=== PATIENT | female | born 1980 | race Caucasian/White ===

== ENCOUNTER 2018-09-24 08:34 | Emergency (ER) | payer MEDICAID ==
[~2018-09-24] VITALS: Ht 167.6 cm; Wt 96.1 kg
[~2018-09-24 08:34] MED LIST: ACET500T98 PO; DENIES MEDS; IRON1TAB75 PO; PNV1TABL43 PO
[2018-09-24 08:43] VITALS: Ht 167.6 cm; Wt 96.1 kg
[2018-09-24] MEDS ORDERED: SULF1TAB31 PO (09:09)
[2018-09-24] MEDS ORDERED: CEPH-443 PO (09:09)
--- NOTE | 2018-09-24 10:31 | ERD ---
ER Documentation Chief Complaint Chief Complaint Complains of an abscess to leg after an injection HPI Patient is a 38-year-old female with no medical problems who presents with redness to the left leg. She had an injection of penicillin given to her left leg 2 weeks ago and afterwards started with redness around the area. She has had fevers as well which she reports. She has pain at the area and is warm to touch. Upon review of old medical records this is the patient's fourth visit to the ER since 2010. She does not currently have a primary doctor. ROS All systems reviewed and are negative except as per history of present illness. Medications Home Meds Active Scripts Cephalexin* (Keflex*) 500 Mg Capsule, 500 MG PO QID for 7 Days, CAP Prov:YOAN MCPHERSON MD 09/24/18 Sulfamethoxazole/Trimethoprim* (Bactrim Ds* Tablet) 1 Each Tablet, 1 TAB PO BID, #14 TAB Prov:YOAN MCPHERSON MD 09/24/18 Reported Medications Iron &Iron Asp Gly/Fa/Mv,Min38 (IRON TABLET) 1 Each Tablet, 1 EACH PO DAILY 02/02/13 Vit/Fe Fumarate/Fa* ( Vitamin Tablet*) 1 Tab Tablet, 1 TAB PO DAILY 02/02/13 Acetaminophen (Tylenol) 500 Mg Tab, PO Q4 06/13/12 [Denies Meds] No Conflict Check 08/11/10 Allergies Allergies: Coded Allergies: No Known Drug Allergy (Verified Allergy, Mild, 06/13/12) PMhx/Soc Medical and Surgical Hx: pt denies Medical Hx History of Surgery: No Anesthesia Reaction: No Hx Neurological Disorder: No Hx Respiratory Disorders: No Hx Cardiac Disorders: No Hx Psychiatric Problems: No Hx Miscellaneous Medical Probl: No Hx Alcohol Use: No Hx Substance Use: No Hx Tobacco Use: No Smoking Status: Never smoker FmHx Family History: No diabetes Physical Exam Vitals Vital Signs Date Temp Pulse Resp B/P (MAP) Pulse Ox O2 O2 Flow FiO2 Time Delivery Rate 09/24/18 97.0 86 20 120/67 98 08:43 (84) Physical Exam Const: No acute distress Head: Atraumatic Eyes: Normal Conjunctiva ENT: Normal External Ears, Nose and Mouth. Neck: Full range of motion. No meningismus. Resp: Clear to auscultation bilaterally Cardio: Regular rate and rhythm, no murmurs Abd: Soft, non tender, non distended. Normal bowel sounds Skin: 4 x 4 centimeter circular area of redness to the left lateral thigh without fluctuance or signs of abscess Back: No midline or flank tenderness Ext: No cyanosis, or edema Neur: Awake and alert Psych: Normal Mood and Affect Procedures/MDM Patient is a 38-year-old female who presents with acute cellulitis of the left thigh. This is likely related to recent injection 2 weeks ago. There is no sign of abscess at this time. The patient will be given Keflex and Bactrim. She is otherwise well-appearing and I doubt sepsis. She will be to follow-up with a primary doctor within 48 hours for wound check. She can return sooner for any worsening symptoms. She was given a list of local clinics as she does not currently have a primary doctor. Departure Diagnosis: Primary Impression: Cellulitis Site of cellulitis: extremity Site of cellulitis of extremity: lower extremity Laterality: left Qualified Codes: L03.116 - Cellulitis of left lower limb Condition: Fair Patient Instructions: Cellulitis Referrals[facility] Usted se crawford hecho un examen mdico de control que le indica que no est en carla condicin que requiera tratamiento urgente en el Departamento de Emergencia. Un estudio ms profundo y el tratamiento de nesbitt condicin pueden esperar sin ningn riesgo hasta que usted sea atendida/o en el consultorio de nesbitt mdico o carla clnica. Es responsabilidad suya arreglar carla inga para el seguimiento del teagan. MANEJO DE CONDICIONES NO URGENTES EN EL FUTURO 1) Si usted tiene un mdico de atencin primaria: Usted debera llamar a nesbitt mdico de atencin primaria antes de venir al departamento de emergencia. Despus de las horas de consultorio, nesbitt doctor o nesbitt asociado/a est disponible por telfono. El mdico o enfermero de emmanuel en el servicio telefnico puede asesorarle por nataliya medio para atender el problema, o teagan contrario se puede programar carla inga. 2) Si usted no tiene un mdico de atencin primaria: Llame al mdico o clnica de referencia que aparece abajo marietta las horas de consultorio para hacer carla inga para que le vean. CLINICAS: [facility] [phone] [facility] [phone] [facility] [phone] [address] [place] [phone] [facility] [place] [phone] [facility] [phone] [address] Additional Instructions: Llame al doctor nombrado abajo (Referral Sources) MAANA y juan carla INGA PARA DENTRO DE CARLA SEMANA. Dgale a la secretaria que nosotros le instruimos hacer esta inga.Avise o llame si nesbitt condicin se empeora antes de la inga. YOAN MCPHERSON MD Sep 24, 2018 10:31
== END 2018-09-24 09:23 | disposition home or self-care (01) ==
LOC: E/R 08:34
DX: L03.116 Cellulitis of left lower limb (principal)
CPT/HCPCS: 99283

== ENCOUNTER 2018-09-27 16:01 | Emergency (ER) | payer MEDICAID ==
[~2018-09-27] VITALS: Ht 167.6 cm; Wt 95.3 kg
[~2018-09-27 16:01] MED LIST changes: +CEPH-443 PO; +SULF1TAB31 PO
[2018-09-27 16:07] VITALS: Ht 167.6 cm; Wt 95.3 kg
[2018-09-28] MEDS ORDERED: LIDOCAINE 2% (MDV) 20 ML INJ INJ ONE (00:30)
[2018-09-28] MEDS ORDERED: HYDROCODONE/APAP (5/325) TAB PO ONE (00:30)
[2018-09-28] MEDS ORDERED: IBUP-1542 PO (01:18)
--- NOTE | 2018-10-04 20:03 | ERD ---
ER Documentation Chief Complaint Chief Complaint Complains of an abscess to the thigh S/P injection stick HPI 38-year-old female patient with no significant past medical history presents to ED for abscess to her by that started after receiving a penicillin injection. Patient reports that her last mensuration was on September 05, 2018. States that she tried to take antibiotics however it did not improve without the incision and drainage. Denies any fever, chills, loss sensation loss of range of motion. ROS All systems reviewed and are negative except as per history of present illness. Medications Home Meds Active Scripts Sulfamethoxazole/Trimethoprim* (Bactrim Ds* Tablet) 1 Each Tablet, 1 TAB PO BID for 5 Days, #10 TAB Prov:ANTIONE DOMINGUEZ NP 09/30/18 Cephalexin* (Keflex*) 500 Mg Capsule, 500 MG PO QID for 5 Days, CAP Prov:ANTIONE DOMINGUEZ RIPENING ROOM ATTENDANT 09/30/18 Cephalexin* (Keflex*) 500 Mg Capsule, 500 MG PO QID for 5 Days, #20 CAP Prov:ANTIONE DOMINGUEZ NP 09/30/18 Sulfamethoxazole/Trimethoprim* (Bactrim Ds* Tablet) 1 Each Tablet, 1 TAB PO BID for 5 Days, #10 TAB Prov:DOMINGUEZANTIONE NP 09/30/18 Ibuprofen* (Motrin*) 600 Mg Tab, 600 MG PO Q6, #30 TAB Prov:DONAL LOPEZ PA-C 09/28/18 Reported Medications Iron &Iron Asp Gly/Fa/Mv,Min38 (IRON TABLET) 1 Each Tablet, 1 EACH PO DAILY 02/02/13 Vit/Fe Fumarate/Fa* ( Vitamin Tablet*) 1 Tab Tablet, 1 TAB PO DAILY 02/02/13 Acetaminophen (Tylenol) 500 Mg Tab, PO Q4 06/13/12 [Denies Meds] No Conflict Check 08/11/10 Allergies Allergies: Coded Allergies: No Known Drug Allergy (Verified Allergy, Mild, 06/13/12) PMhx/Soc History of Surgery: No Anesthesia Reaction: No Hx Neurological Disorder: No Hx Respiratory Disorders: No Hx Cardiac Disorders: No Hx Psychiatric Problems: No Hx Miscellaneous Medical Probl: No Hx Alcohol Use: No Hx Substance Use: No Hx Tobacco Use: No Physical Exam Vitals Temp 98.4 Pulse 96 Systolic blood pressure 130 Diastolic blood pressure 77 Respiratory rate 20 O2 sat 118 Pain intensity 5 Physical Exam Const: [id number], well-nourished. In no acute distress. Head: Atraumatic, normocephalic Eyes: Normal Conjunctiva without injection ENT: Normal external ear, nose and mouth. Neck: Full range of motion. No meningismus. Resp: Clear to auscultation bilaterally. No wheezing, rhonchi, rales, or crackles. No accessory muscle use. No retractions. Cardio: Regular rate and rhythm, no murmurs Skin: No petechiae or rashes Back: No midline tenderness. No CVA tenderness. Ext: No cyanosis, or edema. Cap refill less than 2 seconds. Distal pulses intact bilaterally. 3 cm fluctuance noted of the left upper lateral thigh with slight edema noted. Minimal bleeding. Slight surrounding erythema. Neur: Awake and alert. Normal gait and coordination. Muscle strength 5/5. Sensation intact bilaterally. Psych: Normal Mood and Affect Results 24 hrs Current Medications Medications Dose Sig/Nia Start Time Status Last (Trade) Ordered Route PRN Stop Time Admin Dose Reason Admin Lidocaine 20 ml ONCE ONCE 09/28/18 DC 09/28/18 (Xylocaine INJ 00:30 09/28/18 00:20 2% (Mdv) 20 00:31 ml) 1 tab ONCE ONCE 09/28/18 DC 09/28/18 Acetaminophen PO 00:30 09/28/18 00:20 / 00:31 Hydrocodone Bitart ([place] (5/325)) Procedures/MDM 38-year-old female patient with no significant past medical history presents the ED complaining of an abscess to her left thigh. Patient is afebrile and nontoxic-appearing. Patient gave consent to perform incision and drainage. 11 blade scalpel used to make a small incision. Abscess Incision and Drainage with irrigation by me: Location: Left Thigh Anesthesia: [Local 1% Lidocaine] Technique: [Irrigated. Disrupted loculations w/ instrumentation] Packin cm Complications: [Neurovascularly intact post procedure] Copious purulent discharge drained from the abscess. Instructed patient to continue to take Keflex and Bactrim as prescribed to patient. Instructed patient to return to the ED sooner for any worsening sympto ms. Follow up with primary care physician or return to the ED in 2 days for a wound check. Patient's questions were answered. Patient understood and agreed with discharge plan. Departure Diagnosis: Primary Impression: Abscess Condition: Stable Patient Instructions: Abscess, Incision And Drainage Referrals: [facility] () Usted se crawford hecho un examen mdico de control que le indica que no est en carla condicin que requiera tratamiento urgente en el Departamento de Emergencia. Un estudio ms profundo y el tratamiento de zurita condicin pueden esperar sin ningn riesgo hasta que usted sea atendida/o en el consultorio de zurita mdico o carla clnica. Es responsabilidad suya arreglar carla inga para el seguimiento del teagan. MANEJO DE CONDICIONES NO URGENTES EN EL FUTURO 1) Si usted tiene un mdico de atencin primaria: Usted debera llamar a zurita mdico de atencin primaria antes de venir al departamento de emergencia. Despus de las horas de consultorio, zurita doctor o zurita asociado/a est disponible por telfono. El mdico o enfermero de emmanuel en el servicio telefnico puede asesorarle por nataliya medio para atender el problema, o teagan contrario se puede programar carla inga. 2) Si usted no tiene un mdico de atencin primaria: Llame al mdico o clnica de referencia que aparece abajo [place] las horas de consultorio para hacer carla inga para que le vean. CLINICAS: [facility] [phone] [address] [facility] [phone] [facility] [phone] [address] [facility]. [facility] [phone] [facility]. [facility] [phone] [address] [facility]. [phone] [address] [facility] () Usted se crawford hecho un examen mdico de control que le indica que no est en carla condicin que requiera tratamiento urgente en el Departamento de Emergencia. Un estudio ms profundo y el tratamiento de zurita condicin pueden esperar sin nin riesgo hasta que usted sea atendida/o en el consultorio de zurita mdico o carla clnica. Es responsabilidad suya arreglar carla inga para el seguimiento del teagan. MANEJO DE CONDICIONES NO URGENTES EN EL FUTURO 1) Si usted tiene un mdico de atencin primaria: Usted debera llamar a zurita mdico de atencin primaria antes de venir al departamento de emergencia. Despus de las horas de consultorio, zurita doctor o zurita asociado/a est disponible por telfono. El mdico o enfermero de emmanuel en el servicio telefnico puede asesorarle por nataliya medio para atender el problema, o teagan contrario se puede programar carla inga. 2) Si usted no tiene un mdico de atencin primaria: Llame al mdico o condado institucions de referencia que aparece abajo [place] las horas de consultorio para hacer carla inga para que le vean. SI USTED NO PUEDE PAGAR PARA JERO UN MEDICO puede ir a: [facility] [address] [place] [address] [facility] [address] [place] [address] [facility] [address] [place] [address] [address] [facility] [address] [place], [place] [phone] Additional Instructions: Por favor complete todos los antibiticos prescritos a usted Llame al doctor MAANA y juan carla INGA PARA DENTRO DE 2-3 DIOP.Dgale a la secretaria que nosotros le instruimos hacer esta inga.Avise o llame si zurita condicin se empeora antes de la inga. Regresa aqui si peor o no mejor. WOUND CHECK:CONSULTE A ZURITA MDICO EN 2 perez para jero ZURITA HERIDA y la eliminacin del embalaje. DONAL LOPEZ PA-C Oct 04, 2018 20:03
== END 2018-09-28 01:37 | disposition home or self-care (01) ==
LOC: FTE 16:01
DX: L02.416 Cutaneous abscess of left lower limb (principal)
CPT/HCPCS: 10060; Z7502; Z7610

== ENCOUNTER 2018-09-30 09:50 | Emergency (ER) | payer MEDICAID ==
[~2018-09-30] VITALS: Wt 93.9 kg
[~2018-09-30 09:50] MED LIST changes: +IBUP-1542 PO
[2018-09-30 09:52] VITALS: BP 119/68; PULSE 68; RESP 17
[2018-09-30] MEDS ORDERED: CEPH-443 PO (11:56)
[2018-09-30] MEDS ORDERED: SULF1TAB31 PO (11:56)
[2018-09-30] MEDS ORDERED: HYDROCODONE/APAP (7.5/325) TAB PO ONE (12:00)
--- NOTE | 2018-09-30 12:03 | ERD ---
ER Documentation Chief Complaint Chief Complaint PT HERE FOR WOUND CHECK S/P ABCESS I&D LEFT OUTER UPPER THIGH HPI 38-year-old female patient presents for recheck of left upper thigh abscess which had I&D 3 days ago. Dressing stained with BRB, gauze packing intact. Patient states she was on last day of her prescribed antibiotic. She has been taking Tylenol for pain, denies fevers, denies any purulent drainage. ROS All systems reviewed and are negative except as per history of present illness. Medications Home Meds Active Scripts Sulfamethoxazole/Trimethoprim* (Bactrim Ds* Tablet) 1 Each Tablet, 1 TAB PO BID for 5 Days, #10 TAB Prov:DOMINGUEZANTIONE HEALTHCARE FACILITY ADMINISTRATOR 09/30/18 Cephalexin* (Keflex*) 500 Mg Capsule, 500 MG PO QID for 5 Days, CAP Prov:DOMINGUEZANTIONE HEALTHCARE FACILITY ADMINISTRATOR 09/30/18 Cephalexin* (Keflex*) 500 Mg Capsule, 500 MG PO QID for 5 Days, #20 CAP Prov:ANGELICAANTIONE HEALTHCARE FACILITY ADMINISTRATOR 09/30/18 Sulfamethoxazole/Trimethoprim* (Bactrim Ds* Tablet) 1 Each Tablet, 1 TAB PO BID for 5 Days, #10 TAB Prov:ANGELICAANTIONE HEALTHCARE FACILITY ADMINISTRATOR 09/30/18 Ibuprofen* (Motrin*) 600 Mg Tab, 600 MG PO Q6, #30 TAB Prov:DONAL LOPEZ PA-C 09/28/18 Reported Medications Iron &Iron Asp Gly/Fa/Mv,Min38 (IRON TABLET) 1 Each Tablet, 1 EACH PO DAILY 02/02/13 Vit/Fe Fumarate/Fa* ( Vitamin Tablet*) 1 Tab Tablet, 1 TAB PO D AILY 02/02/13 Acetaminophen (Tylenol) 500 Mg Tab, PO Q4 06/13/12 [Denies Meds] No Conflict Check 08/11/10 Allergies Allergies: Coded Allergies: No Known Drug Allergy (Verified Allergy, Mild, 06/13/12) PMhx/Soc History of Surgery: No Anesthesia Reaction: No Hx Neurological Disorder: No Hx Respiratory Disorders: No Hx Cardiac Disorders: No Hx Psychiatric Problems: No Hx Miscellaneous Medical Probl: No Hx Alcohol Use: No Hx Substance Use: No Hx Tobacco Use: No FmHx Family History: No diabetes, No coronary disease, No other Physical Exam Vitals Vital Signs Date Temp Pulse Resp B/P (MAP) Pulse Ox O2 O2 Flow FiO2 Time Delivery Rate 09/30/18 98.4 68 17 119/68 98 09:52 (85) Physical Exam Const: No acute distress Head: Atraumatic Eyes: Normal Conjunctiva ENT: Normal External Ears, Nose and Mouth. Neck: Full range of motion. No meningismus. Resp: Clear to auscultation bilaterally Cardio: Regular rate and rhythm, no murmurs Abd: Soft, non tender, non distended. Normal bowel sounds Skin: No petechiae or rashes. -Left thigh wound: periwound skin red and indurated, wound edges moist, sanguineous drainage, mild purulent drainage. Back: No midline or flank tenderness Ext: No cyanosis, or edema Neur: Awake and alert Psych: Normal Mood and Affect Results 24 hrs Current Medications Medications Dose Sig/Nia Start Time Status Last (Trade) Ordered Route PRN Stop Time Admin Dose Reason Admin 1 tab ONCE ONCE 09/30/18 DC 09/30/18 Acetaminophen PO 12:00 12:23 / 09/30/18 12:01 Hydrocodone Bitart ([place] (7.5-325)) Procedures/MDM Wound was not repacked with gauze per assessment of Dr. Serna. She was instructed on care of wound. Patient was instructed to change outer dressing daily. Antibiotics extended for 5 more days. She is instructed to have wound check in 2 days. Patient verbalized understanding of signs and symptoms of red flags and worsening of condition and when to seek emergent medical treatment. Departure Diagnosis: Primary Impression: Encounter for wound re-check Additional Impression: Cellulitis Condition: Stable Patient Instructions: Post Op Wound Check, Pain Referrals: NO PRIMARY,CARE PHYSICIAN (PCP) [facility] YOU HAVE RECEIVED A MEDICAL SCREENING EXAM AND THE RESULTS INDICATE THAT YOU DO NOT HAVE A CONDITION THAT REQUIRES URGENT TREATMENT IN THE EMERGENCY DEPARTMENT. FURTHER EVALUATION AND TREATMENT OF YOUR CONDITION CAN WAIT UNTIL YOU ARE SEEN IN YOUR DOCTORS OFFICE WITHIN THE NEXT 1-2 DAYS. IT IS YOUR RESPONSIBILITY TO MAKE AN APPOINTMENT FOR FOLOW-UP CARE. IF YOU HAVE A PRIMARY DOCTOR --you should call your primary doctor and schedule an appointment IF YOU DO NOT HAVE A PRIMARY DOCTOR YOU CAN CALL OUR PHYSICIAN REFERRAL HOTLINE AT IF YOU CAN NOT AFFORD TO SEE A PHYSICIAN YOU CAN CHOSE FROM THE FOLLOWING [facility] [address] [facility] [address] [facility] [address] [facility] [address] [facility] [address] [facility]. [facility] [address] Additional Instructions: Continue antibiotics for additional 5 days Keep wound clean and dry Change dressing daily Follow-up for wound check in 3-5 days Return to the emergency room for severe pain, drainage, worsening of redness Apply warm compress for 20 minutes 3-5 times per day ANTIONE DOMINGUEZ NP Sep 30, 2018 12:03 JIM BARRIENTOS MD Sep 30, 2018 20:23
== END 2018-09-30 12:31 | disposition home or self-care (01) ==
LOC: FTE 09:50
DX: L03.116 Cellulitis of left lower limb (principal)
CPT/HCPCS: Z7502; Z7610; 99283

== ENCOUNTER 2018-12-09 17:14 | Emergency (ER) | payer MEDICAID ==
[~2018-12-09] VITALS: Wt 97.0 kg
[2018-12-09] MEDS ORDERED: KETOROLAC 15 MG INJ IV STA (18:48)
[2018-12-09] MEDS ORDERED: DIPHENHYDRAMINE 50 MG INJ IV STA (18:48)
[2018-12-09] MEDS ORDERED: METOCLOPRAMIDE 10 MG INJ IV STA (18:48)
[2018-12-09] MEDS ORDERED: IBUP-1542 PO (18:55)
--- NOTE | 2018-12-09 19:42 | ERD ---
ER Documentation Chief Complaint Chief Complaint ALVAREZ X 3 DAYS HPI This is a 38-year-old female presents to the ED complaining of a right-sided frontal and periorbital headache x3 days. She states she has not been sleeping well and is stressed about her child who has been sick with URI type symptoms for the past 1 month. She states pain is mostly localized to her right periorbital and parietal scalp. Describes it as a pulsating pain associated with photophobia. She has a history of migraine headaches and states today's pain is similar but more intense. This is not the worst headache of her life. Denies any associated nausea, vomiting, neck pain/neck stiffness, fever, chills or any other complaints. No head trauma. Pain is not improved with ibuprofen at home. ROS All systems reviewed and are negative except as per history of present illness. Medications Home Meds Active Scripts Ibuprofen* (Motrin*) 600 Mg Tab, 600 MG PO Q6H PRN for PAIN AND OR ELEVATED TEMP, #30 TAB Prov:RANDI LINDSEY PA-C 12/09/18 Sulfamethoxazole/Trimethoprim* (Bactrim Ds* Tablet) 1 Each Tablet, 1 TAB PO BID for 5 Days, #10 TAB Prov:ANTIONE DOMINGUEZ NP 09/30/18 Cephalexin* (Keflex*) 500 Mg Capsule, 500 MG PO QID for 5 Days, CAP Prov:ANTIONE DOMINGUEZ NP 09/30/18 Cephalexin* (Keflex*) 500 Mg Capsule, 500 MG PO QID for 5 Days, #20 CAP Prov:ANTIONE DOMINGUEZ NP 09/30/18 Sulfamethoxazole/Trimethoprim* (Bactrim Ds* Tablet) 1 Each Tablet, 1 TAB PO BID for 5 Days, #10 TAB Prov:ANTIONE DOMINGUEZ NP 09/30/18 Ibuprofen* (Motrin*) 600 Mg Tab, 600 MG PO Q6, #30 TAB Prov:DONAL LOPEZ PA-C 09/28/18 Reported Medications Iron &Iron Asp Gly/Fa/Mv,Min38 (IRON TABLET) 1 Each Tablet, 1 EACH PO DAILY 02/02/13 Vit/Fe Fumarate/Fa* ( Vitamin Tablet*) 1 Tab Tablet, 1 TAB PO D AILY 02/02/13 Acetaminophen (Tylenol) 500 Mg Tab, PO Q4 06/13/12 [Denies Meds] No Conflict Check 1/19/11 Allergies Allergies: Coded Allergies: No Known Drug Allergy (Verified Allergy, Mild, 06/13/12) PMhx/Soc Medical and Surgical Hx: pt denies Medical Hx, pt denies Surgical Hx History of Surgery: No Anesthesia Reaction: No Hx Neurological Disorder: No Hx Respiratory Disorders: No Hx Cardiac Disorders: No Hx Psychiatric Problems: No Hx Miscellaneous Medical Probl: No Hx Alcohol Use: No Hx Substance Use: No Hx Tobacco Use: No Smoking Status: Never smoker Physical Exam Vitals Vital Signs Date Temp Pulse Resp B/P (MAP) Pulse Ox O2 O2 Flow FiO2 Time Delivery Rate 12/09/18 98.2 75 18 113/66 98 17:18 (82) Physical Exam Const: No acute distress Head: Atraumatic Eyes: Normal Conjunctiva ENT: Normal External Ears, Nose and Mouth. Neck: Full range of motion. No meningismus. Resp: Clear to auscultation bilaterally Cardio: Regular rate and rhythm, no murmurs Abd: Soft, non tender, non distended. Normal bowel sounds Skin: No petechiae or rashes Back: No midline or flank tenderness Ext: No cyanosis, or edema Neuro: M/S: Alert and oriented Face: EOMI, face and pharynx with normal sensation and function Motor: Normal strength throughout Sensation: Normal sensation throughout Speech: Normal Cerebel: Normal coordination Normal gait Normal finger to nose DTR: 2+ and symmetric upper/lower extremities Psych: Normal Mood and Affect Results 24 hrs Laboratory Tests Test 12/09/18 19:35 POC Beta HCG, Qualitative NEGATIVE Current Medications Medications Dose Sig/Nia Start Time Status Last (Trade) Ordered Route PRN Stop Time Admin Dose Reason Admin 10 mg ONCE STAT 12/09/18 DC 12/09/18 Metoclopramid IV 18:48 19:44 e HCl 12/09/18 18:50 (Reglan) 25 mg ONCE STAT 12/09/18 DC 12/09/18 Diphenhydrami IV 18:48 19:44 ne HCl 12/09/18 18:50 (Benadryl) Ketorolac 15 mg ONCE STAT 12/09/18 DC 12/09/18 Tromethamine IV 18:48 19:46 (Toradol) 12/09/18 18:50 Procedures/MDM ED COURSE: The patient was given IV fluids, Toradol, Reglan, Benadryl The medication was well tolerated and the patient had market improvement in symptoms. The patient remained stable throughout ED course. MEDICAL DECISION MAKIN38 year old female with history of migraines presents with exacerbation of her typical migraine headaches. She has no fever here and vital signs are stable. No focal neurological deficits on physical exam. Clinical presentation not consistent with subarachnoid hemorrhage, epidural or subdural hematoma, IC mass, CVA, encephalitis or meningitis. Pain improved status post IV fluids, Benadryl, Toradol and Reglan here. Patient was discharged home with close follow up and mangement by PCP in 48 hours. Strict return precautions discussed. PRESCRIPTIONS: Ibuprofen SPECIALIST FOLLOW UP RECOMMENDED: None Patient has been advised to follow up with primary care in 1-2 days. Departure Diagnosis: Primary Impression: Headache Headache type: unspecified Headache chronicity pattern: unspecified pattern Intractability: not intractable Qualified Codes: R51 - Headache Condition: Stable Patient Instructions: Self-Care for Headaches Referrals: NO PRIMARY,CARE PHYSICIAN (PCP) Additional Instructions: Paciente aconseja volver a Departamento de urgencias inmediatamente para sntomas nuevos o que empeoran . Paciente aconseja posteriores con el PCP en 1-2 perez. Si el paciente no tiene ninguna de atencin primaria pueden seguir con [facility] [address] [place] [address] o [facility] + [address] [address] RANDI LINDSEY PA-C December 09, 2018 19:42
[2018-12-09] MEDS ORDERED: SOD CHLORIDE 0.9% 1,000 ML IV STA (20:13)
--- NOTE | 2018-12-09 20:54 | EN ---
Date/Time of Note Date/Time of Note DATE: 12/09/18 TIME: 20:52 ER Progress Note Patient reassessment at 2049: Patient denies pain. Patient denies nausea vomiting. Patient hemodynamically stable. Disposition given. Questions answered. JILLIAN FRY NP December 09, 2018 20:54
[2018-12-09 21:10] VITALS: BP 108/59; PULSE 68; RESP 20
== END 2018-12-09 21:18 | disposition home or self-care (01) ==
LOC: FTE 17:14
DX: R51 Headache (principal)
CPT/HCPCS: 81025; 96374; 96375; J1200; J1885; J2765; J7030; Z7502